=== PATIENT | male | born 1940 | race Caucasian/White ===

== ENCOUNTER 2017-12-07 06:01 | Day surgery (SDC) | payer MEDICARE, OTHER ==
[2017-12-07] MEDS ORDERED: Versed 2 MG/2 ML Injection IV ONE (06:02)
[2017-12-07] MEDS ORDERED: DIPRIVAN 200 MG/20 ML IV ONE (06:02)
[2017-12-07] MEDS ORDERED: Lactated Ringers 1,000 ML IV SCH (06:30)
[2017-12-07 08:37] VITALS: BP 134/87; PULSE 73; O2SAT 98
--- NOTE | 2017-12-07 13:27 | OP ---
SURGERY DATE/TIME: 12/07/2017 0722 PREOPERATIVE DIAGNOSIS: Heme-positive stools. POSTOPERATIVE DIAGNOSIS: Normal colon. PROCEDURE: Colonoscopy. SURGEON: Dr. Gabriel. ANESTHESIA: MAC. Medications given by anesthesia department. HISTORY: The patient is a 77 year-old white male patient presenting now for his first colonoscopy. He was prompted to do this because he had positive Cologuard test. It was noted that the patient does take aspirin and meloxicam. The patient was felt the need to have endoscopic evaluation and he was appraised of the risks of the procedure including the risk of perforation, phlebitis, untoward reaction to medication, bleeding and missed lesions. The patient verbalized his understanding and desired to have the procedure performed. DESCRIPTION OF PROCEDURE: The patient was given the medications by the anesthesia department. He had continuous pulse oximetry, ECG monitoring, intermittent blood pressure monitoring and tidal CO2 monitoring during the examination. He was placed in the left lateral decubitus position. A digital rectal examination was performed and revealed normal anal sphincter tone, no masses and normal prostate. The flexible Olympus pediatric colonoscope was used to intubate the rectum. A view of the colon was developed sequentially to the cecum. Upon insertion and withdrawal, including a retroflex view in the rectum, no mucosal lesions were encountered. The scope was removed from the patient who tolerated the procedure well and was sent back to OP recovery in good condition. The prep was noted to be fair to good.
== END 2017-12-07 08:46 | disposition home or self-care (01) ==
LOC: SDC 06:01
PROVIDERS: ATTEND Family Medicine
PROC: 0DJD8ZZ Inspection of Lower Intestinal Tract, Via Natural or Artificial Opening Endoscopic (ICD-10-PCS; principal; 2017-12-07)
DX: R19.5 Other fecal abnormalities (principal)
CPT/HCPCS: 00812; 99100; J2250; J2704

== ENCOUNTER 2018-12-24 05:45 | Day surgery (SDC) | payer MEDICARE ==
[2018-12-24] MEDS ORDERED: Ketamine HCl 50 MG/ML IJ ONE (05:46)
[2018-12-24] MEDS ORDERED: DIPRIVAN 200 MG/20 ML IV ONE (05:46)
[2018-12-24] MEDS ORDERED: Lactated Ringers 1,000 ML IV SCH (06:00)
[2018-12-24 07:10] VITALS: O2SAT 98
[2018-12-24] MEDS ORDERED: Lactated Ringers 1,000 ML IV ONE (07:15)
--- NOTE | 2018-12-24 09:11 | OP ---
SURGERY DATE/TIME: 12/24/2018 0750 PREOPERATIVE DIAGNOSIS: Rectal bleeding. POSTOPERATIVE DIAGNOSIS: Findings consistent with ulcerative colitis. PROCEDURE: Colonoscopy with cold forceps biopsy. SURGEON: Dr. Gabriel. ANESTHESIA: MAC. Medications given by anesthesia department. HISTORY: The patient is a 78 year-old white male patient who reports he has been having intermittent rectal bleeding mostly just in the morning. He had a previous colonoscopy a year ago for surveillance which was negative. However the patient has developed these problems since that time and he is felt the need to have endoscopic evaluation. He was appraised of the risks of the procedure including the risk of perforation, phlebitis, untoward reaction to medication, bleeding and missed lesions. The patient verbalized his understanding and desired to have the procedure performed. DESCRIPTION OF PROCEDURE: The patient was given the medications by the anesthesia department. He had continuous pulse oximetry, ECG monitoring, intermittent blood pressure monitoring and tidal CO2 monitoring during the examination. He was placed in the left lateral decubitus position. A digital rectal examination was performed and revealed normal anal sphincter tone, no masses and normal prostate. The flexible Olympus pediatric colonoscope was used to intubate the rectum. A view of the colon was developed sequentially to the cecum. Upon insertion and withdrawal, including a retroflex view in the rectum was noted some inflammatory process going on including increase in mucous secretions throughout the rectum and the distal portion of the sigmoid colon to approximately 35 cm depth insertion. Cold biopsies were obtained to determine the nature of the problem which appears to be most consistent with ulcerative colitis. The scope was removed from the patient who tolerated the procedure well and was sent back to OP recovery in good condition. The prep is noted to be fair to good.
[2018-12-24 09:18] VITALS: BP 126/89; PULSE 68
== END 2018-12-24 09:22 | disposition home or self-care (01) ==
LOC: SDC 05:45
PROVIDERS: ATTEND Family Medicine
DX: K51.90 Ulcerative colitis, unspecified, without complications (principal)
CPT/HCPCS: 99100; J2704

== ENCOUNTER 2022-05-20 09:46 | Emergency (ER) | payer MEDICARE ==
[2022-05-20 10:06] VITALS: BP 147/87; PULSE 63; O2SAT 97
--- NOTE | 2022-05-20 10:20 | ERPHSYRPT ---
- History of Present Illness Source: patient Exam Limitations: no limitations Patient Subjective Stated Complaint: Pts left hearing aid silicone end came off in his left ear canal Triage Nursing Assessment: Pt brought self to the ER, hypertensive, denies pain, silicone tip found in left ear canal, no other complaints at this time Physician History: Gel from hearing aid stuck in L otic canal x 1 day. Pt tried to get Gel out at home wo success. Timing/Duration: abrupt onset ENT Location: ear (L) Prearrival Treatment: no prearrival treatment Modifying Factors: Improves With: nothing Associated Symptoms: ear pain (L) Allergies/Adverse Reactions: No Known Drug Allergies Allergy (Verified 05/20/22 10:06) Home Medications: Betamethasone Dipropionate [Diprosone CREAM 0.05% ] 0 gm TP UD 05/20/22 [History] Famotidine 40 mg PO DAILY 05/20/22 [History] Simvastatin 5 mg PO DAILY 05/20/22 [History] Sulfasalazine 500 mg [Azulfidine 500 mg] 500 mg PO DAILY 05/20/22 [History] Tamsulosin HCl 0.4 mg [Flomax 0.4 MG] 0.4 mg PO DAILY 05/20/22 [History] Umeclidinium Brm/Vilanterol Tr [Anoro Ellipta 62.5-25 Mcg INH] 1 each IH UD 05/20/22 [History] Hx Influenza Vaccination/Date Given: Yes (07/2011) Travel Risk - International Travel Have you traveled outside of the country in past 3 weeks: No - Coronavirus Screening Are you exhibiting any of the following symptoms?: No Close contact with a COVID-19 positive Pt in past 14-21 Days: No - Vaccine Status Have you recieved a Covid-19 vaccination: Yes [facility] Consultant: Moderna - Vaccination Dates Date of 2cond Vaccination (if applicable): 2020 - Review of Systems Constitutional: No Symptoms Eyes: No Symptoms Respiratory: No Symptoms Cardiac: No Symptoms Abdominal/Gastrointestinal: No Symptoms Genitourinary Symptoms: No Symptoms Musculoskeletal: No Symptoms Skin: No Symptoms Neurological: No Symptoms Psychological: No Symptoms Endocrine: No Symptoms Hematologic/Lymphatic: No Symptoms Immunological/Allergic: No Symptoms - Past Medical History Pertinent Past Medical History: Yes Neurological History: No Pertinent History ENT History: No Pertinent History Cardiac History: No Pertinent History Respiratory History: No Pertinent History Endocrine Medical History: No Pertinent History Musculoskeletal History: Arthritis GI Medical History: Other History: No Pertinent History Psycho-Social History: No Pertinent History Male Reproductive Disorders: No Pertinent History Other Medical History: recent rectal bleeding "few yrs ago,then it went away" "last year the colonoscopy was clear", "about four weeks ago had some bleeding" - Past Surgical History Past Surgical History: Yes Neuro Surgical History: No Pertinent History Cardiac: No Pertinent History Respiratory: No Pertinent History Gastrointestinal: Hernia Repair Genitourinary: No Pertinent History Musculoskeletal: No Pertinent History Male Surgical History: No Pertinent History Other Surgical History: hernia x5 - Social History Smoking Status: Former smoker Exposure to second hand smoke: No Drug Use: none Patient Lives Alone: No Significant Family History: no pertinent family hx - Nursing Vital Signs Nursing Vital Signs: Initial Vital Signs Temperature 98.3 F 05/20/22 09:51 Pulse Rate 63 05/20/22 09:51 Blood Pressure 147/87 05/20/22 09:51 O2 Sat by Pulse Oximetry 97 05/20/22 09:51 Pain Scale Pain Intensity 0 Hypertensive - Physical Exam General Appearance: no apparent distress Eye Exam: bilateral eye: normal inspection, PERRL, EOMI Ear Exam: left ear: foreign body (Gel in L otic canal/Some blood in canal from previous removal attempt per nursing/Easily removed w alligator forceps per physician) Nasal Exam: normal inspection Throat Exam: normal, pharynx normal Neck Exam: normal inspection, non-tender, supple, full range of motion, trachea midline, No JVD Cardiovascular/Respiratory Exam: normal breath sounds, regular rate/rhythm, heart sounds normal Abdominal Exam: non-tender Neurologic Exam: alert, oriented x 3, cooperative, 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, nor mal mood/affect, nml cerebellar function, nml station & gait, sensation nml Skin Exam: normal color, warm, dry SpO2 Interpretation: normal SpO2: 97 O2 Delivery: Room Air - Course Nursing assessment & vital signs reviewed: Yes - Progress Progress: improved Progress Note: 05/20/22 10:19 Gel from hearing aid easily removed w Alligator forceps per MD/Some blood in canal due to removal attempt w cerumen spoon per nursing 05/20/22 12:06 Counseled pt/family regarding: diagnosis, need for follow-up - Departure Departure Disposition: Home Clinical Impression: Ear foreign body Condition: Stable Critical Care Time: No Referrals: ESTELITA VYAS [Primary Care Provider] - Follow up/PCP as directed Instructions: Removal of Foreign Body, Swallowed, Adult, Removing Objects Stuck in the Ear Additional Instructions: Follow up with your family MD on Sunday or Sunday Keep hearing aid out until seen by family MD Return to ER as needed Prescriptions: Ofloxacin Otic 5 ml [Floxin Otic 5 ML] 10 drops OT BID #5 ml
== END 2022-05-20 10:31 | disposition home or self-care (01) ==
LOC: ED 09:46
DX: T16.2XXA Foreign body in left ear, initial encounter (principal); Y72.2 Prosthetic and other implants, materials and accessory otorhinolaryngological devices associated with adverse incidents; Z79.899 Other long term (current) drug therapy
CPT/HCPCS: 99281

== ENCOUNTER 2023-01-14 12:03 | Observation (INO) | payer MEDICARE ==
--- NOTE | 2023-01-14 12:37 | ERPHSYRPT ---
- History of Present Illness Source: patient Exam Limitations: other (Poor historian) Patient Subjective Stated Complaint: pt here for being unsteady, weak sicne during bible study, he states that he fractured cervical 6 and 7 and is in a c collar. Triage Nursing Assessment: pt alert, walked in with a cane gait steady, resp easy, skin w/d/p. c collar in place. pt is a poor historian Physician History: 82 yo wm w cc of blurry vision and being off-balance x 3 days. Pt denies focal weakness/trauma/chest pain/headache/otalgia/nausea/vo mitng/diarrhea/melena/hematochezia. He is currently wearing a hard C-collar due to a C6-C7 fracture on 10/16/22. Timing/Duration: other (3 days ago) Severity: mild Character of Deficits: vision problems (Blussy vision), other (Off balance) Deficits: off balance Baseline/Normal Cognition: alert oriented x 3 Current Cognition: alert oriented x 3 Baseline Gait: uses cane Associated Symptoms: denies symptoms Allergies/Adverse Reactions: No Known Drug Allergies Allergy (Verified 01/14/23 12:15) Home Medications: Betamethasone Dipropionate [Diprosone CREAM 0.05% ] 0 gm TP UD 05/20/22 [History] Famotidine 40 mg PO DAILY 05/20/22 [History] Simvastatin 5 mg PO QHS 05/20/22 [History] Sulfasalazine 500 mg [Azulfidine 500 mg] 500 mg PO DAILY 05/20/22 [History] Tamsulosin HCl 0.4 mg [Flomax 0.4 MG] 0.4 mg PO DAILY 05/20/22 [History] Umeclidinium Brm/Vilanterol Tr [Anoro Ellipta 62.5-25 Mcg INH] 1 each IH DAILY 05/20/22 [History] Amiodarone HCl 200 mg PO DAILY 01/14/23 [History] Gabapentin 100 mg PO QAM 01/14/23 [History] Gabapentin 200 mg PO QHS 01/14/23 [History] Lisinopril 10 mg [Zestril 10 MG] 10 mg PO DAILY 01/14/23 [History] Hx Influenza Vaccination/Date Given: Yes (07/2011) Hx Pneumococcal Vaccination/Date Given: Yes Immunizations Up to Date: Yes Travel Risk - International Travel Have you traveled outside of the country in past 3 weeks: No - Coronavirus Screening Are you exhibiting any of the following symptoms?: No - Vaccine Status Have you recieved a Covid-19 vaccination: Yes 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 - Vaccination Dates Date of 2cond Vaccination (if applicable): 2020 - Review of Systems Constitutional: No Symptoms Eyes: No Symptoms Ears, Nose, & Throat: No Symptoms Respiratory: No Symptoms Cardiac: No Symptoms Abdominal/Gastrointestinal: No Symptoms Genitourinary Symptoms: No Symptoms Musculoskeletal: No Symptoms Skin: No Symptoms Psychological: No Symptoms Endocrine: No Symptoms Hematologic/Lymphatic: No Symptoms Immunological/Allergic: No Symptoms - Past Medical History Pertinent Past Medical History: Yes Neurological History: No Pertinent History ENT History: No Pertinent History Cardiac History: No Pertinent History Respiratory History: No Pertinent History Endocrine Medical History: No Pertinent History Musculoskeletal History: Arthritis GI Medical History: Other History: No Pertinent History Psycho-Social History: No Pertinent History Male Reproductive Disorders: No Pertinent History Other Medical History: recent rectal bleeding "few yrs ago,then it went away" "last year the colonoscopy was clear", "about four weeks ago had some bleeding" fracture cervical 6and 7 2022 - Past Surgical History Past Surgical History: Yes Neuro Surgical History: No Pertinent History Cardiac: No Pertinent History Respiratory: No Pertinent History Gastrointestinal: Hernia Repair Genitourinary: No Pertinent History Musculoskeletal: No Pertinent History Male Surgical History: No Pertinent History Other Surgical History: hernia x5 - Social History Smoking Status: Former smoker Exposure to second hand smoke: No Drug Use: none Patient Lives Alone: Yes Significant Family History: no pertinent family hx - Nursing Vital Signs Nursing Vital Signs: Initial Vital Signs Temperature 98.0 F 01/14/23 12:16 Pulse Rate 74 01/14/23 12:16 Respiratory Rate 18 01/14/23 12:16 Blood Pressure 133/76 01/14/23 12:16 O2 Sat by Pulse Oximetry 98 01/14/23 12:16 Pain Scale Pain Intensity 0 WNL - Eric Coma Scale Best Eye Response ([place]): (4) open spontaneously Best Verbal Response (Eric): (5) oriented Best Motor Response ([place]): (6) obeys commands [place] Total: 15 - Physical Exam General Appearance: no apparent distress Eye Exam: bilateral eye: normal inspection, PERRL, EOMI Ears, Nose, Throat Exam: normal ENT inspection, TMs normal, pharynx normal, moist mucous membranes Neck Exam: other (Hard C-collar in place) Respiratory: normal breath sounds, lungs clear, airway intact, No respiratory distress Cardiovascular: regular rate/rhythm, normal heart sounds, normal peripheral pulses, capillary refill <2 sec, No murmur Gastrointestinal: soft, normal bowel sounds, tenderness Back Exam: normal inspection, normal range of motion, No CVA tenderness, No vertebral tenderness Extremity Exam: normal inspection, normal range of motion Mental Status: alert, oriented x 3, cooperative civil engineer Exam: normal hearing, normal speech, PERRL Motor/Sensory: no motor deficit, no sensory deficit, no pronator drift, negative Babinski's sign DTR: bicep (R): 2+, bicep (L): 2+ Skin Exam: normal color, warm, dry, No rash SpO2 Interpretation: normal SpO2: 98 O2 Delivery: Room Air - Course Nursing assessment & vital signs reviewed: Yes EKG Interpreted by Me: RATE (NSr/Rate 70/Normal QT-QTc/No acute ST segment changes/Flat Twaves) - CT Exams Head CT Interpretation: Tele-radiologist Report (CT head-Nothing acute/CTA head Nostenosis or occlusion) Other CT Interpretation: Tele-radiologist Report (CTA of neck-atherosclerotic change/No dignificant occlusion) Ordered Tests: Active Orders 24 hr Category Date Time Status EKG-ER Only STAT Care 01/14/23 12:29 Completed Heart-Healthy Diet Diet 01/14/[address] ANGIOGRAPHY NECK [CT] Routine Exams 01/14/23 13:33 Completed CTA HEAD W AND/OR WO CONTRAST [CT] Stat Exams 01/14/23 14:21 Completed MRI BRAIN W/O CONTRAST [MRI] Stat Exams 01/15/23 15:26 Stop Req CBC W DIFF AM.LAB Lab 01/15/23 04:00 Ordered CBC W DIFF Stat Lab 01/14/23 12:45 Completed CMP AM.LAB Lab 01/15/23 04:00 Ordered CMP Stat Lab 01/14/23 12:45 Completed PROTIME WITH INR Stat Lab 01/14/23 12:45 Completed PTT Stat Lab 01/14/23 12:45 Completed TROPONIN Q4H Lab 01/14/23 12:45 Completed TROPONIN Q4H Lab 01/14/23 15:55 Completed TROPONIN Q4H Lab 01/14/23 20:30 Completed Medication Summary Generic Name Dose Route Start Last Admin Trade Name Freq PRN Reason Stop Dose Admin Acetaminophen 500 mg 01/14/23 20:03 01/14/23 21:43 Acetaminophen 500 Mg Tablet PO 02/13/23 20:02 500 mg Q4H PRN PRN Administration PAIN Gabapentin 200 mg 01/14/23 22:00 01/14/23 21:42 Gabapentin 100 Mg Capsule PO 02/13/23 21:59 200 mg HS ZHANE Administration Ondansetron HCl 4 mg 01/14/23 15:24 Ondansetron Hcl 4 Mg/2 Ml Vial IV 02/13/23 15:23 Q6H PRN PRN NAUSEA/VOMITING Simvastatin 5 mg 01/14/23 22:00 01/14/23 21:43 Simvastatin 10 Mg Tablet PO 01/14/23 22:01 5 mg ONCE ONE Administration Lab/Rad Data: Laboratory Result Diagrams 01/14/23 12:45 01/14/23 12:45 Laboratory Results 01/14/23 01/14/23 01/14/23 Range/Units 15:55 15:55 12:45 WBC (4.0-10.5) x10^3/uL RBC (4.1-5.6) x10^6/uL Hgb (12.5-18.0) g/dL Hct (42-50) % MCV (78-100) fL MCH (26-32) pg MCHC (32-36) g/dL RDW (11.5-14.0) % Plt Count (150-450) x10^3/uL MPV (7.5-11.0) fL Gran % (36.0-66.0) % Immature Gran % (Auto) (0.00-0.4) % Nucleat RBC Rel Count (0.00-0.1) % Eos # (Auto) (0-0.5) x10^3/uL Immature Gran # (Auto) (0.00-0.03) x10^3u/L Absolute Lymphs (auto) (1.0-4.6) x10^3/uL Absolute Monos (auto) (0.0-1.3) x10^3/uL Absolute Nucleated RBC (0.00-0.01) x10^3u/L Lymphocytes % (24.0-44.0) % Monocytes % (0.0-12.0) % Eosinophils % (0.00-5.0) % Basophils % (0.0-0.4) % Absolute Granulocytes (1.4-6.9) x10^3/uL Basophils # (0-0.4) x10^3/uL PT (9.4-12.5) SECONDS INR (0.8-3.0) APTT (25.1-36.5) SECONDS Sodium (137-145) mmol/L Potassium (3.5-5.1) mmol/L Chloride (98-107) mmol/L Carbon Dioxide (22-30) mmol/L Anion Gap (5-15) MEQ/L BUN (9-20) mg/dL Creatinine (0.66-1.25) mg/dL Estimated GFR ML/MIN Glucose (74-106) mg/dL Calcium (8.4-10.2) mg/dL Total Bilirubin (0.2-1.3) mg/dL AST (17-59) U/L ALT (0-50) U/L Alkaline Phosphatase (38-126) U/L Troponin I < 0.012 < 0.012 (0.000-0.034) ng/mL Serum Total Protein (6.3-8.2) g/dL Albumin (3.5-5.0) g/dL Influenza Type A Ag NEGATIVE (NEGATIVE) Influenza Type B Ag NEGATIVE (NEGATIVE) RSV (PCR) NEGATIVE (NEGATIVE) SARS-CoV-2 (PCR) NEGATIVE (NEGATIVE) 01/14/23 01/14/23 01/14/23 Range/Units 12:45 12:45 12:45 WBC 5.6 (4.0-10.5) x10^3/uL RBC 4.20 (4.1-5.6) x10^6/uL Hgb 13.0 (12.5-18.0) g/dL Hct 39.5 L (42-50) % MCV 94.0 (78-100) fL MCH 31.0 (26-32) pg MCHC 32.9 (32-36) g/dL RDW 13.4 (11.5-14.0) % Plt Count 164 (150-450) x10^3/uL MPV 10.3 (7.5-11.0) fL Gran % 67.3 H (36.0-66.0) % Immature Gran % (Auto) 0.4 (0.00-0.4) % Nucleat RBC Rel Count 0.0 (0.00-0.1) % Eos # (Auto) 0.03 (0-0.5) x10^3/uL Immature Gran # (Auto) 0.02 (0.00-0.03) x10^3u/L Absolute Lymphs (auto) 1.16 (1.0-4.6) x10^3/uL Absolute Monos (auto) 0.60 (0.0-1.3) x10^3/uL Absolute Nucleated RBC 0.00 (0.00-0.01) x10^3u/L Lymphocytes % 20.7 L (24.0-44.0) % Monocytes % 10.7 (0.0-12.0) % Eosinophils % 0.5 (0.00-5.0) % Basophils % 0.4 (0.0-0.4) % Absolute Granulocytes 3.77 (1.4-6.9) x10^3/uL Basophils # 0.02 (0-0.4) x10^3/uL PT 10.3 (9.4-12.5) SECONDS INR 0.94 (0.8-3.0) APTT 26.6 (25.1-36.5) SECONDS Sodium 135 L (137-145) mmol/L Potassium 4.6 (3.5-5.1) mmol/L Chloride 100 (98-107) mmol/L Carbon Dioxide 29 (22-30) mmol/L Anion Gap 10.6 (5-15) MEQ/L BUN 14 (9-20) mg/dL Creatinine 0.74 (0.66-1.25) mg/dL Estimated GFR > 60.0 ML/MIN Glucose 90 (74-106) mg/dL Calcium 9.8 (8.4-10.2) mg/dL Total Bilirubin 0.50 (0.2-1.3) mg/dL AST 24 (17-59) U/L ALT 18 (0-50) U/L Alkaline Phosphatase 73 (38-126) U/L Troponin I (0.000-0.034) ng/mL Serum Total Protein 7.2 (6.3-8.2) g/dL Albumin 4.3 (3.5-5.0) g/dL Influenza Type A Ag (NEGATIVE) Influenza Type B Ag (NEGATIVE) RSV (PCR) (NEGATIVE) SARS-CoV-2 (PCR) (NEGATIVE) - Progress Progress: unchanged Progress Note: 01/14/23 15:[address] Stewart 01/14/23 15:26 Nursing note and vital signs reviewed All lab and CT/CTA results reviewed and shared w pt Pt is a full code No food or housing insecurities noted Pt w obs admit for MRI of brain to r/o cerebellar CVA 01/14/23 15:28 01/15/23 01:37 Discussed with : Sammie Counseled pt/family regarding: lab results, diagnosis, need for follow-up, rad results - Departure Departure Disposition: Observation Clinical Impression: Balance disorder Condition: Stable Critical Care Time: No
[2023-01-14 12:50] LABS: Absolute Neutrophil Ct (ANC) 3.77 x10^3/uL (1.4-6.9); BASOPHIL % 0.4 % (0.0-0.4); Basophil (Absolute #) 0.02 x10^3/uL (0-0.4); Eosinophil % 0.5 % (0.00-5.0); Eosinophil (Absolute #) 0.03 x10^3/uL (0-0.5); Hematocrit 39.5 % (42-50); IMMATURE GRAN # 0.02 x10^3u/L (0.00-0.03); IMMATURE GRAN % 0.4 % (0.00-0.4); Lymphocyte (Absolute #) 1.16 x10^3/uL (1.0-4.6); Lymphocytes % 20.7 % (24.0-44.0); Mean Corpuscular Hgb Concent. 32.9 g/dL (32-36); Mean Platelet Volume 10.3 fL (7.5-11.0); Monocytes % 10.7 % (0.0-12.0); Neutrophil % 67.3 % (36.0-66.0); Platelet Count 164 x10^3/uL (150-450); Red Cell Distribution Width 13.4 % (11.5-14.0); White Blood Count 5.6 x10^3/uL (4.0-10.5)
[2023-01-14 13:06] LABS: ALBUMIN 4.3 g/dL (3.5-5.0); ALKALINE PHOSPHATASE 73 U/L (38-126); ANION GAP 10.6 MEQ/L (5-15); BLOOD UREA NITROGEN 14 mg/dL (9-20); CHLORIDE 100 mmol/L (98-107); Calcium 9.8 mg/dL (8.4-10.2); Carbon Dioxide 29 mmol/L (22-30); Creatinine 1 0.74 mg/dL (0.66-1.25); EST GLOMERULAR FILTRATION RATE > 60.0 ML/MIN; Glucose 90 mg/dL (74-106); INR 0.94 (0.8-3.0); PROTIME 10.3 SECONDS (9.4-12.5); PTT 26.6 SECONDS (25.1-36.5); Potassium 4.6 mmol/L (3.5-5.1); SGOT/AST 24 U/L (17-59); SGPT/ALT 18 U/L (0-50); SODIUM 135 mmol/L (137-145); Total Protein 7.2 g/dL (6.3-8.2)
[2023-01-14] MEDS ORDERED: Zofran 4 MG/2 ML VIAL IV PRN (15:24)
[2023-01-14 16:36] LABS: INFLUENZA A NEGATIVE (NEGATIVE); INFLUENZA B NEGATIVE (NEGATIVE); RESPIRATORY SYNCTIAL VIRUS NEGATIVE (NEGATIVE); SARS-CoV-2 Xpert Express NEGATIVE (NEGATIVE)
--- NOTE | 2023-01-14 19:28 | XRAY ---
Indication: Dizziness and blurred vision. Known C6 fracture. Conventional contrast enhanced CTA neck performed using 100 cc Isovue 370 contrast. 2-D sagittal and coronal reformatted images obtained. Additional 3-D reformatted images obtained using a separate workstation. Comparison: None Visualized aortic arch minimally arteriosclerotic without aneurysm/dissection. Incidental anatomic variant for bovine arch. Examination of the right carotid circulation demonstrate widely patent common carotid artery. Carotid bulb demonstrates minimal eccentric calcified plaquing extending into the origin of the internal and external carotid arteries. No critical stenosis, obstruction, or AV malformation. Examination of the left carotid circulation demonstrates widely patent common carotid artery. Carotid bulb demonstrates punctate eccentric calcified plaquing. Very minimal calcified plaquing seen in the proximal internal carotid and left sided reactional carotid arteries without critical stenosis or obstruction. Vertebral arteries are bilaterally patent with the left larger in caliber. Osseous structures tubularized with minimal/mild multilevel cervical thoracic degenerative spondylosis greatest at C4-C6 levels. 4 mm anterolisthesis of C6 on C7. No acute fracture or suspicious bony lesions. Visualized soft tissues demonstrates homogeneous enhancing thyroid gland. Supra and infraglottic airway widely patent. No pathologic cervical/supraclavicular lymphadenopathy. Lung apices demonstrates scattered fibrosis/scarring. CTA head reported separately. Impression: 1. Very minimal left carotid and minimal right carotid arteriosclerotic plaquing as detailed. Negative for critical stenosis/obstruction. 2. Incidental osteopenia, multilevel degenerative spondylosis, and C6 grade 1 anterolisthesis. Comment: Preliminary interpretation made by [facility]. No critical discrepancy.
--- NOTE | 2023-01-14 19:34 | XRAY ---
Indication: Dizziness and blurred vision. Stroke. Known C6 fracture. Initial CT head without contrast was performed. Then conventional contrast enhanced CTA head performed using 100 cc Isovue 370 contrast. 2-D sagittal and coronal reformatted images obtained. Additional 3-D reformatted images obtained using a separate workstation. Comparison: None CTA neck reported separately. CT head without contrast exam demonstrates age-appropriate global atrophy and minimal periventricular degenerative micro-ischemia. No acute intracranial hemorrhage, abnormal extra-axial fluid collection, or mass effect. Fourth ventricle is midline without hydrocephalus. Bony calvarium intact. Visualized paranasal sinuses and mastoid air cells are clear. CTA demonstrates distal internal carotid to be bilaterally symmetric with mild scattered arteriosclerotic calcifications. No critical stenosis, obstruction, or AV malformation. Normal carotid terminus with normal branching A1 and M1 segments bilaterally. More distal anterior cerebral and middle cerebral arteries are normal in CTA appearance bilaterally. Incidental anatomic variant for origin right posterior cerebral artery. Posterior circulation demonstrates normal CTA appearance to the basilar, left/right posterior cerebral, left/right superior cerebellar, and left/right anterior-inferior cerebellar arteries. Venous sinuses/drainage is are unremarkable. No abnormal enhancing intra-or extra-axial mass. Impression: 1. CT head without contrast exam is nonacute with normal appearing aging brain for patient's age. 2. CTA head with contrast demonstrates mild arteriosclerotic calcifications in both distal internal carotid arteries without critical stenosis/obstruction. Remaining CTA head with contrast exam is negative. Comment: Preliminary interpretation made by [facility]. No critical discrepancy.
[2023-01-14] MEDS ORDERED: TYLENOL EXTRA STRENGTH 500 MG PO PRN (20:03)
[2023-01-14] MEDS ORDERED: Zocor 10MG PO ONE (22:00)
[2023-01-14] MEDS ORDERED: Neurontin PO SCH (22:00)
[2023-01-15 05:01] LABS: Absolute Neutrophil Ct (ANC) 2.25 x10^3/uL (1.4-6.9); BASOPHIL % 0.5 % (0.0-0.4); Basophil (Absolute #) 0.02 x10^3/uL (0-0.4); Eosinophil (Absolute #) 0.08 x10^3/uL (0-0.5); Hematocrit 37.5 % (42-50); IMMATURE GRAN # 0.01 x10^3u/L (0.00-0.03); IMMATURE GRAN % 0.2 % (0.00-0.4); Lymphocyte (Absolute #) 1.28 x10^3/uL (1.0-4.6); Lymphocytes % 31.3 % (24.0-44.0); Mean Cell Volume 94.2 fL (78-100); Mean Corpuscular Hemoglobin 30.2 pg (26-32); Mean Platelet Volume 11.1 fL (7.5-11.0); Monocyte (Absolute #) 0.45 x10^3/uL (0.0-1.3); Platelet Count 160 x10^3/uL (150-450); Red Blood Count 3.98 x10^6/uL (4.1-5.6); Red Cell Distribution Width 13.5 % (11.5-14.0); White Blood Count 4.1 x10^3/uL (4.0-10.5)
[2023-01-15 05:19] LABS: ALBUMIN 3.6 g/dL (3.5-5.0); ALKALINE PHOSPHATASE 65 U/L (38-126); ANION GAP 7.7 MEQ/L (5-15); BLOOD UREA NITROGEN 15 mg/dL (9-20); CHLORIDE 103 mmol/L (98-107); Calcium 9.2 mg/dL (8.4-10.2); Carbon Dioxide 28 mmol/L (22-30); Creatinine 1 0.79 mg/dL (0.66-1.25); EST GLOMERULAR FILTRATION RATE > 60.0 ML/MIN; Glucose 94 mg/dL (74-106); Potassium 4.1 mmol/L (3.5-5.1); SGOT/AST 20 U/L (17-59); SGPT/ALT 15 U/L (0-50); SODIUM 135 mmol/L (137-145); Total Protein 6.1 g/dL (6.3-8.2)
[2023-01-15] MEDS ORDERED: BETAMETHASONE DIPROPIONATE TP SCH (07:45)
[2023-01-15] MEDS ORDERED: KENALOG 0.1% CREAM 15 GM TP PRN (07:49)
[2023-01-15] MEDS ORDERED: MEDICATION INTERVENTION MC SCH (08:00)
[2023-01-15] MEDS ORDERED: AZULFIDINE 500 MG PO SCH (10:00)
[2023-01-15] MEDS ORDERED: Cordarone 200 MG PO SCH (10:00)
[2023-01-15] MEDS ORDERED: Flomax 0.4 MG PO SCH (10:00)
[2023-01-15] MEDS ORDERED: NON-FORMULARY ITEM (Famotidine [Famotidine] 40 MG Tablet) PO SCH (10:00)
[2023-01-15] MEDS ORDERED: Zestril 10 MG PO SCH (10:00)
[2023-01-15] MEDS ORDERED: Neurontin PO SCH (10:00)
[2023-01-15] MEDS ORDERED: Pepcid 20 MG PO SCH (10:00)
--- NOTE | 2023-01-15 10:14 | XRAY ---
Indication: Balance issues and vision loss. Recent fall. Sagittal, coronal, and axial MRI brain performed without contrast using T1, T2, FLAIR, diffusion, and ADC sequences. Comparison: None Age-appropriate global atrophy and very minimal periventricular degenerative micro-ischemia bilaterally. No acute intracranial hemorrhage, abnormal extra-axial fluid collection, or mass effect. Diffusion images are negative for restricted signal. Fourth ventricle is midline without hydrocephalus. 7/8 cranial nerve complex bilaterally symmetric. Normal flow-void signal within the major intracerebral circulation. Normal appearing craniocervical junction and sella turcica. Visualized paranasal sinuses are clear. Fluid signal right mastoid air cells presumed inflammatory. Impression: 1. Atrophy and degenerative micro-ischemia within normal limits for patient's age. 2. Fluid signal right mastoid air cells presumed inflammatory. 3. Remaining MRI brain without contrast exam is negative.
--- NOTE | 2023-01-15 15:06 | PCM.SSS ---
History of Present Illness - Chief Complaint Chief Complaint: generalized weakness History of Present Illness: is a 82 year old male c/o of blurry vision and being off-balance x 3 days. Pt denies focal weakness/new trauma/chest pain/headache/otalgia/nausea/vomitng/diarrhea/melena/hematochezia. Fall SEP 2022 wearing a hard C-collar due to a C6-C7 fracture on 10/16/22. Blurred vision has improved overnight. Medications & Allergies Home Medications: Home Medication List Betamethasone Dipropionate [Diprosone CREAM 0.05% ] 0 gm TP UD 05/20/22 [History Confirmed 01/14/23] Famotidine 40 mg PO DAILY 05/20/22 [History Confirmed 01/14/23] Simvastatin 5 mg PO QHS 05/20/22 [History Confirmed 01/14/23] Sulfasalazine 500 mg [Azulfidine 500 mg] 500 mg PO DAILY 05/20/22 [History Confirmed 01/14/23] Tamsulosin HCl 0.4 mg [Flomax 0.4 MG] 0.4 mg PO DAILY 05/20/22 [History Confirmed 01/14/23] Umeclidinium Brm/Vilanterol Tr [Anoro Ellipta 62.5-25 Mcg INH] 1 each IH DAILY 05/20/22 [History Confirmed 01/14/23] Amiodarone HCl 200 mg PO DAILY 01/14/23 [History Confirmed 01/14/23] Gabapentin 100 mg PO QAM 01/14/23 [History Confirmed 01/14/23] Gabapentin 200 mg PO QHS 01/14/23 [History Confirmed 01/14/23] Lisinopril 10 mg [Zestril 10 MG] 10 mg PO DAILY 01/14/23 [History Confirmed 01/14/23] Allergies/Adverse Reactions: Allergies Allergy/AdvReac Type Severity Reaction Status Date / Time No Known Drug Allergies Allergy Verified 01/14/23 12:15 - Past Medical History Past Medical History: Yes Neurological History: No Pertinent History ENT History: No Pertinent History Cardiac History: No Pertinent History Respiratory History: No Pertinent History Endocrine Medical History: No Pertinent History Musculoskelatal History: Arthritis GI Medical History: Other History: No Pertinent History Pyscho-Social History: No Pertinent History Male Reproductive Disorders: No Pertinent History Comment: recent rectal bleeding "few yrs ago,then it went away" "last year the colonoscopy was clear", "about four weeks ago had some bleeding" fracture cervi emerson [id number] - Past Surgical History Past Surgical History: Yes Neuro Surgical History: No Pertinent History Cardiac History: No Pertinent History Respiratory Surgery: No Pertinent History GI Surgical History: Hernia Repair Genitourinary Surgical Hx: No Pertinent History Musculskeletal Surgical Hx: No Pertinent History Male Surgical History: No Pertinent History Other Surgical History: hernia x5 - Social History Smoking Status: Former smoker Exposure to second hand smoke: No Alcohol: None Drug Use: none Significant Family History: no pertinent family hx - Physical Exam Vital Signs: Vital Signs - 24 hr Temp Pulse Resp BP Pulse Ox 01/15/23 12:00 98.6 F 67 20 144/75 96 01/15/23 09:52 69 14 97 01/15/23 07:18 98.2 F 64 24 135/62 96 01/15/23 03:41 98.4 F 56 L 16 107/55 97 01/15/23 01:38 98 01/14/23 23:40 98.2 F 60 17 98/57 97 01/14/23 19:38 98.1 F 82 18 129/61 96 01/14/23 16:07 78 18 135/77 97 01/14/23 15:15 92 H 124/69 98 Results - Labs Lab/Micro Results: Lab Results-Last 24 Hours 01/14/23 01/14/23 01/14/23 Range/Units 15:55 15:55 20:30 WBC (4.0-10.5) x10^3/uL RBC (4.1-5.6) x10^6/uL Hgb (12.5-18.0) g/dL Hct (42-50) % MCV (78-100) fL MCH (26-32) pg MCHC (32-36) g/dL RDW (11.5-14.0) % Plt Count (150-450) x10^3/uL MPV (7.5-11.0) fL Gran % (36.0-66.0) % Immature Gran % (Auto) (0.00-0.4) % Nucleat RBC Rel Count (0.00-0.1) % Eos # (Auto) (0-0.5) x10^3/uL Immature Gran # (Auto) (0.00-0.03) x10^3u/L Absolute Lymphs (auto) (1.0-4.6) x10^3/uL Absolute Monos (auto) (0.0-1.3) x10^3/uL Absolute Nucleated RBC (0.00-0.01) x10^3u/L Lymphocytes % (24.0-44.0) % Monocytes % (0.0-12.0) % Eosinophils % (0.00-5.0) % Basophils % (0.0-0.4) % Absolute Granulocytes (1.4-6.9) x10^3/uL Basophils # (0-0.4) x10^3/uL Sodium (137-145) mmol/L Potassium (3.5-5.1) mmol/L Chloride (98-107) mmol/L Carbon Dioxide (22-30) mmol/L Anion Gap (5-15) MEQ/L BUN (9-20) mg/dL Creatinine (0.66-1.25) mg/dL Estimated GFR ML/MIN Glucose (74-106) mg/dL Calcium (8.4-10.2) mg/dL Total Bilirubin (0.2-1.3) mg/dL AST (17-59) U/L ALT (0-50) U/L Alkaline Phosphatase (38-126) U/L Troponin I < 0.012 < 0.012 (0.000-0.034) ng/mL Serum Total Protein (6.3-8.2) g/dL Albumin (3.5-5.0) g/dL Influenza Type A Ag NEGATIVE (NEGATIVE) Influenza Type B Ag NEGATIVE (NEGATIVE) RSV (PCR) NEGATIVE (NEGATIVE) SARS-CoV-2 (PCR) NEGATIVE (NEGATIVE) 01/15/23 01/15/23 Range/Units 04:22 04:22 WBC 4.1 (4.0-10.5) x10^3/uL RBC 3.98 L (4.1-5.6) x10^6/uL Hgb 12.0 L (12.5-18.0) g/dL Hct 37.5 L (42-50) % MCV 94.2 (78-100) fL MCH 30.2 (26-32) pg MCHC 32.0 (32-36) g/dL RDW 13.5 (11.5-14.0) % Plt Count 160 (150-450) x10^3/uL MPV 11.1 H (7.5-11.0) fL Gran % 55.0 (36.0-66.0) % Immature Gran % (Auto) 0.2 (0.00-0.4) % Nucleat RBC Rel Count 0.0 (0.00-0.1) % Eos # (Auto) 0.08 (0-0.5) x10^3/uL Immature Gran # (Auto) 0.01 (0.00-0.03) x10^3u/L Absolute Lymphs (auto) 1.28 (1.0-4.6) x10^3/uL Absolute Monos (auto) 0.45 (0.0-1.3) x10^3/uL Absolute Nucleated RBC 0.00 (0.00-0.01) x10^3u/L Lymphocytes % 31.3 (24.0-44.0) % Monocytes % 11.0 (0.0-12.0) % Eosinophils % 2.0 (0.00-5.0) % Basophils % 0.5 (0.0-0.4) % Absolute Granulocytes 2.25 (1.4-6.9) x10^3/uL Basophils # 0.02 (0-0.4) x10^3/uL Sodium 135 L (137-145) mmol/L Potassium 4.1 (3.5-5.1) mmol/L Chloride 103 (98-107) mmol/L Carbon Dioxide 28 (22-30) mmol/L Anion Gap 7.7 (5-15) MEQ/L BUN 15 (9-20) mg/dL Creatinine 0.79 (0.66-1.25) mg/dL Estimated GFR > 60.0 ML/MIN Glucose 94 (74-106) mg/dL Calcium 9.2 (8.4-10.2) mg/dL Total Bilirubin 0.50 (0.2-1.3) mg/dL AST 20 (17-59) U/L ALT 15 (0-50) U/L Alkaline Phosphatase 65 (38-126) U/L Troponin I (0.000-0.034) ng/mL Serum Total Protein 6.1 L (6.3-8.2) g/dL Albumin 3.6 (3.5-5.0) g/dL Influenza Type A Ag (NEGATIVE) Influenza Type B Ag (NEGATIVE) RSV (PCR) (NEGATIVE) SARS-CoV-2 (PCR) (NEGATIVE) - Radiology Impressions Radiology Exams & Impressions: Radiology Procedures Category Date Time Status CT ANGIOGRAPHY NECK [CT] Routine Exams 01/14/23 13:33 Completed CTA HEAD W AND/OR WO CONTRAST [CT] Stat Exams 01/14/23 14:21 Completed MRI BRAIN W/O CONTRAST [MRI] Stat Exams 01/15/23 15:26 Completed - Other Procedures and Tests Respiratory Therapy 01/15/23 09:50 Respiratory Therapy Assessment DAILY Hospital Summary - Vitals & Intake/Output Vital Signs: Vital Signs Temperature 98.6 F 01/15/23 12:00 Pulse Rate 67 01/15/23 12:00 Respiratory Rate 20 01/15/23 12:00 Blood Pressure 144/75 01/15/23 12:00 O2 Sat by Pulse Oximetry 96 01/15/23 12:00 Intake & Output: Intake & Output 01/13/23 01/14/23 01/15/23 01/16/23 11:59 11:59 11:59 11:59 Intake Total 800 400 Balance 800 400 Weight 81.647 kg - Lab Result Diagrams: 01/15/23 04:22 01/15/23 04:22 Lab Results-Last 24 Hrs: Lab Results-Last 24 Hours 01/14/23 01/14/23 01/14/23 Range/Units 15:55 15:55 20:30 WBC (4.0-10.5) x10^3/uL RBC (4.1-5.6) x10^6/uL Hgb (12.5-18.0) g/dL Hct (42-50) % MCV (78-100) fL MCH (26-32) pg MCHC (32-36) g/dL RDW (11.5-14.0) % Plt Count (150-450) x10^3/uL MPV (7.5-11.0) fL Gran % (36.0-66.0) % Immature Gran % (Auto) (0.00-0.4) % Nucleat RBC Rel Count (0.00-0.1) % Eos # (Auto) (0-0.5) x10^3/uL Immature Gran # (Auto) (0.00-0.03) x10^3u/L Absolute Lymphs (auto) (1.0-4.6) x10^3/uL Absolute Monos (auto) (0.0-1.3) x10^3/uL Absolute Nucleated RBC (0.00-0.01) x10^3u/L Lymphocytes % (24.0-44.0) % Monocytes % (0.0-12.0) % Eosinophils % (0.00-5.0) % Basophils % (0.0-0.4) % Absolute Granulocytes (1.4-6.9) x10^3/uL Basophils # (0-0.4) x10^3/uL Sodium (137-145) mmol/L Potassium (3.5-5.1) mmol/L Chloride (98-107) mmol/L Carbon Dioxide (22-30) mmol/L Anion Gap (5-15) MEQ/L BUN (9-20) mg/dL Creatinine (0.66-1.25) mg/dL Estimated GFR ML/MIN Glucose (74-106) mg/dL Calcium (8.4-10.2) mg/dL Total Bilirubin (0.2-1.3) mg/dL AST (17-59) U/L ALT (0-50) U/L Alkaline Phosphatase (38-126) U/L Troponin I < 0.012 < 0.012 (0.000-0.034) ng/mL Serum Total Protein (6.3-8.2) g/dL Albumin (3.5-5.0) g/dL Influenza Type A Ag NEGATIVE (NEGATIVE) Influenza Type B Ag NEGATIVE (NEGATIVE) RSV (PCR) NEGATIVE (NEGATIVE) SARS-CoV-2 (PCR) NEGATIVE (NEGATIVE) 01/15/23 01/15/23 Range/Units 04:22 04:22 WBC 4.1 (4.0-10.5) x10^3/uL RBC 3.98 L (4.1-5.6) x10^6/uL Hgb 12.0 L (12.5-18.0) g/dL Hct 37.5 L (42-50) % MCV 94.2 (78-100) fL MCH 30.2 (26-32) pg MCHC 32.0 (32-36) g/dL RDW 13.5 (11.5-14.0) % Plt Count 160 (150-450) x10^3/uL MPV 11.1 H (7.5-11.0) fL Gran % 55.0 (36.0-66.0) % Immature Gran % (Auto) 0.2 (0.00-0.4) % Nucleat RBC Rel Count 0.0 (0.00-0.1) % Eos # (Auto) 0.08 (0-0.5) x10^3/uL Immature Gran # (Auto) 0.01 (0.00-0.03) x10^3u/L Absolute Lymphs (auto) 1.28 (1.0-4.6) x10^3/uL Absolute Monos (auto) 0.45 (0.0-1.3) x10^3/uL Absolute Nucleated RBC 0.00 (0.00-0.01) x10^3u/L Lymphocytes % 31.3 (24.0-44.0) % Monocytes % 11.0 (0.0-12.0) % Eosinophils % 2.0 (0.00-5.0) % Basophils % 0.5 (0.0-0.4) % Absolute Granulocytes 2.25 (1.4-6.9) x10^3/uL Basophils # 0.02 (0-0.4) x10^3/uL Sodium 135 L (137-145) mmol/L Potassium 4.1 (3.5-5.1) mmol/L Chloride 103 (98-107) mmol/L Carbon Dioxide 28 (22-30) mmol/L Anion Gap 7.7 (5-15) MEQ/L BUN 15 (9-20) mg/dL Creatinine 0.79 (0.66-1.25) mg/dL Estimated GFR > 60.0 ML/MIN Glucose 94 (74-106) mg/dL Calcium 9.2 (8.4-10.2) mg/dL Total Bilirubin 0.50 (0.2-1.3) mg/dL AST 20 (17-59) U/L ALT 15 (0-50) U/L Alkaline Phosphatase 65 (38-126) U/L Troponin I (0.000-0.034) ng/mL Serum Total Protein 6.1 L (6.3-8.2) g/dL Albumin 3.6 (3.5-5.0) g/dL Influenza Type A Ag (NEGATIVE) Influenza Type B Ag (NEGATIVE) RSV (PCR) (NEGATIVE) SARS-CoV-2 (PCR) (NEGATIVE) - Radiology Exams Ordered Rad Exams-Entire Visit: Radiology Procedures Category Date Time Status CT ANGIOGRAPHY NECK [CT] Routine Exams 01/14/23 13:33 Completed CTA HEAD W AND/OR WO CONTRAST [CT] Stat Exams 01/14/23 14:21 Completed MRI BRAIN W/O CONTRAST [MRI] Stat Exams 01/15/23 15:26 Completed - Procedures and Test Procedures and Tests throughout Hospitalization: Therapy Orders & Screens 01/15/23 09:50 Respiratory Therapy Assessment DAILY Comment: Diagnosis: generalized weakness - Discharge Disposition: Home, Self-Care Condition: Stable Prescriptions: Continue Betamethasone Dipropionate [Diprosone CREAM 0.05% ] 0 gm TP UD Tamsulosin HCl 0.4 mg [Flomax 0.4 MG] 0.4 mg PO DAILY Simvastatin 5 mg PO QHS Umeclidinium Brm/Vilanterol Tr [Anoro Ellipta 62.5-25 Mcg INH] 1 each IH DAILY Sulfasalazine 500 mg [Azulfidine 500 mg] 500 mg PO DAILY Famotidine 40 mg PO DAILY Lisinopril 10 mg [Zestril 10 MG] 10 mg PO DAILY Gabapentin 200 mg PO QHS Gabapentin 100 mg PO QAM Amiodarone HCl 200 mg PO DAILY Additional Instructions: FOLLOW UP WITH DR. Felton VYAS AND KEEP YOUR APPOINTMENT WITH [facility]. 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
[2023-01-15 16:22] VITALS: BP 110/67; PULSE 64; O2SAT 95
--- NOTE | 2023-01-15 16:55 | XRAY ---
Indication: C6 and C7 fracture following fall September 2022. Sagittal and axial MRI cervical spine performed without contrast using T1 and T2-weighted sequences. Comparison: None Sagittal images demonstrate normal cervical lordosis with minimal 3-4 mm anterolisthesis of C6 on C7. Multilevel cervicothoracic degenerative disc desiccation signal with C4-C7 disc space narrowing. No acute fracture, suspicious bony lesions, or abnormal bone marrow signal. Spinal cord is normal in course and caliber without signal abnormality. Normal appearing craniocervical junction. Axial images at C2-C3 level negative for disc herniation, spinal canal, or foraminal stenosis. At C3-C4 level, there is right foraminal narrowing due to uncovertebral spurring. No disc herniation or canal stenosis. At C4-C6 levels, there is left foraminal narrowing due to uncovertebral spurring. No disc herniation or canal stenosis. At C6-C7 level, there is bilateral foraminal narrowing due to grade 1 anterolisthesis. No disc herniation or canal stenosis. The C7-T1 level is unremarkable. Impression: 1. Minimal grade 1 anterolisthesis C6 on C7 with subsequent bilateral foraminal narrowing. 2. Minimal C3-C6 degenerative changes as detailed. 3. Negative for disc herniation, spot canal stenosis, or abnormal bone marrow signal.
--- NOTE | 2023-01-15 17:27 | XRAY ---
Indication: C6 and C7 fracture. Comparison: Same day MRI cervical spine and CTA neck one day earlier. 5 view cervical spine obtained with C collar in position demonstrates osteopenia, mild multilevel degenerative spondylosis greatest at C4-C7 levels, and minimal 3-4 mm anterolisthesis of C6 on C7 all unchanged. No new/acute abnormalities.
[2023-01-15] MEDS ORDERED: Zocor 10MG PO SCH (22:00)
[2023-01-15] MEDS ORDERED: NON-FORMULARY ITEM (Simvastatin [Simvastatin] 5 MG Tablet) PO SCH (22:00)
== END 2023-01-15 19:15 | disposition home or self-care (01) ==
LOC: ED 12:03 → MED SURG 17:07
PROVIDERS: ADMIT Family Medicine; ATTEND Family Medicine
DX: R53.1 Weakness (principal); S12.500S Unspecified displaced fracture of sixth cervical vertebra, sequela; S12.600S Unspecified displaced fracture of seventh cervical vertebra, sequela; Z79.899 Other long term (current) drug therapy; Z20.828 Contact with and (suspected) exposure to other viral communicable diseases
CPT/HCPCS: 0241U; 36000; 36415; 70496; 70498; 70551; 72050; 72141; 80053; 84484; 85025; 85610; 85730; 93005; 93268; 94760; 99285; G0378; A9270-GY